=== PATIENT | male | born 1965 | race Caucasian/White ===

== ENCOUNTER 2016-10-10 04:59 | Emergency (ER) | payer BC ==
[~2016-10-10] VITALS: Ht 185.4 cm; Wt 76.0 kg
[~2016-10-10 04:59] MED LIST: ALBU1AER INH; BACT800T5 PO; GABA100C4 PO; LEVE250 PO; METH500T3 PO; NAPR500 PO
[2016-10-10 05:01] VITALS: BP 126/73; PULSE 92; RESP 18; TEMP 98; O2SAT 97
[2016-10-10] MEDS ORDERED: LEVE500 PO (05:19)
[2016-10-10] MEDS ORDERED: GABA600T PO (05:19)
[2016-10-10] MEDS ORDERED: CLINDAMYCIN INJ 900 MG in SODIUM CHLORIDE 0.9% INJ 100 ML IV ONE (06:15)
[2016-10-10] MEDS ORDERED: LIDOCAINE HCL 1% PF 30 ML VIAL INFIL ONE (06:15)
[2016-10-10 06:47] LABS: AUTOMATED NEUTROPHIL # 4.8 TH/MM3 (1.8-7.7); BASOPHIL # 0.1 TH/MM3 (0-0.2); BASOPHIL % 0.9 % (0.0-2.0); EOSINOPHIL # 0.2 TH/MM3 (0-0.4); EOSINOPHIL % 2.7 % (0.0-4.0); HEMATOCRIT 40.5 % (39.0-51.0); HEMO FLAGS DIFF FINAL; LYMPH % 25.3 % (9.0-44.0); LYMPHOCYTE # 2.1 TH/MM3 (1.0-4.8); MEAN CELL VOLUME 91.8 FL (80.0-100.0); MEAN CORPUSCULAR HGB CONC 33.8 % (32.0-36.0); MONO % 12.2 % (0.0-8.0); NEUT % 58.9 % (16.0-70.0); PLATELET COUNT 229 TH/MM3 (150-450); RED BLOOD COUNT 4.42 MIL/MM3 (4.50-5.90); RED CELL DISTRIBUTION WIDTH 15.9 % (11.6-17.2); WHITE BLOOD COUNT 8.2 TH/MM3 (4.0-11.0)
[2016-10-10 07:02] LABS: BICARBONATE 24.7 MEQ/L (21.0-32.0); POTASSIUM 4.1 MEQ/L (3.5-5.1)
--- NOTE | 2016-10-10 07:35 | PD ---
Physical Exam Time Seen by Provider: 07:34 Data Data Last Documented VS Vital Signs Date Time Temp Pulse Resp B/P Pulse Ox O2 Delivery O2 Flow Rate FiO2 10/10/16 05:01 98.0 92 18 126/73 97 Orders Basic Metabolic Panel (Bmp) (10/10/16 06:07) Complete Blood Count With Diff (10/10/16 06:07) Blood Culture (10/10/16 06:07) Wound Culture And Gram Stain (10/10/16 06:07) Iv Access Insert/Monitor (10/10/16 06:07) Clindamycin Inj (Cleocin Inj) (10/10/16 06:15) Lidocaine Pf 1% Inj (Xylocaine-Mpf 1% In (10/10/16 06:15) Labs Laboratory Tests Test 10/10/16 06:20 White Blood Count 8.2 TH/MM3 Red Blood Count 4.42 MIL/MM3 Hemoglobin 13.7 GM/DL Hematocrit 40.5 % Mean Corpuscular Volume 91.8 FL Mean Corpuscular Hemoglobin 31.0 PG Mean Corpuscular Hemoglobin 33.8 % Concent Red Cell Distribution Width 15.9 % Platelet Count 229 TH/MM3 Mean Platelet Volume 7.3 FL Neutrophils (%) (Auto) 58.9 % Lymphocytes (%) (Auto) 25.3 % Monocytes (%) (Auto) 12.2 % Eosinophils (%) (Auto) 2.7 % Basophils (%) (Auto) 0.9 % Neutrophils # (Auto) 4.8 TH/MM3 Lymphocytes # (Auto) 2.1 TH/MM3 Monocytes # (Auto) 1.0 TH/MM3 Eosinophils # (Auto) 0.2 TH/MM3 Basophils # (Auto) 0.1 TH/MM3 CBC Comment DIFF FINAL Differential Comment Sodium Level 138 MEQ/L Potassium Level 4.1 MEQ/L Chloride Level 104 MEQ/L Carbon Dioxide Level 24.7 MEQ/L Anion Gap 9 MEQ/L Blood Urea Nitrogen 12 MG/DL Creatinine 0.83 MG/DL Estimat Glomerular Filtration 97 ML/MIN Rate Random Glucose 80 MG/DL Calcium Level 8.3 MG/DL [facility] Medical Record Reviewed: Yes Supervised Visit with SASCHA: No Procedures Procedure Narrative After the risks and benefits were discussed the following procedure was performed: INCISION AND DRAINAGE OF ABSCESS: The area was prepped and was sterilely draped. A subcutaneous wheal of 1% Xylocaine with epi with a total number 4 mL was used to anesthetize the area. The area was properly anesthetized. A number 11scalpel was used to open the area across the area of the abscess. Cultures were obtained. The abscess was drained an irrigated with normal saline. Quarter inch iodoform packing was placed in the wound. Sterile dressing applied. Patient advised to have packing removed in two days. Condition: Stable Aspen Aguilera Oct 10, 2016 07:35
[2016-10-10] MEDS ORDERED: CLIN1CAP5 PO (07:36)
[2016-10-10] MEDS ORDERED: BACT800T5 PO (07:36)
--- NOTE | 2016-10-10 07:37 | PD ---
HPI Chief Complaint: Skin Problem Time Seen by Provider: 06:06 Travel History International Travel<30 days: No Contact w/Intl Traveler<30days: No Traveled to known affect area: No History of Present Illness HPI 51-year-old male presents to the emergency department for complaint of skin infection and abscess to the right forearm. Patient has had abscess to the right forearm in the past due to IV Dilaudid abuse. Patient states he has not used IV Dilaudid and 2 weeks or greater. Patient states that he believes he was stung or bitten by an insect or some other organism because he denies using any IV drugs in that form for some time now. Agent thinks he's had some subjective fever and chills but has not checked his temperature. Patient denies any ascending erythema and denies any axillary tenderness or lymphadenopathy. Patient's had no nausea or vomiting. Patient is not diabetic. Patient rates his pain as moderate to severe. Patient is right- handed. Patient reports his tetanus status is current. Patient states she's been taking his medications as prescribed for seizure disorder and chronic pain syndrome. [facility] Past Medical History Narrative Medical Chronic back pain, seizure disorder, IV drug use; nursing notes reviewed Diminished Hearing: No Headaches: No Musculoskeletal: Yes (CHRONIC LOW BACK PAIN) Neurologic: No Immunizations Current: Yes Migraines: No Seizures: Yes (Due to drug use) Past Surgical History Surgical History: No Previous Surgery Other Surgery: No Social History Alcohol Use: No Tobacco Use: Yes (2 packs per day) Substance Use: Yes (states 2 weeks ago IV drug use) Allergies-Medications (Allergen,Severity, Reaction): Coded Allergies: No Known Allergies (Unverified , 10/10/16) Reported Meds & Prescriptions Reported Meds & Active Scripts Active Reported Gabapentin 600 Mg Tab 600 Mg PO TID Keppra (Levetiracetam) 500 Mg Tab 500 Mg PO BID Review of Systems General / Constitutional: Positive: Fever (subjective) Eyes: No: Visual changes HENT: No: Congestion Cardiovascular: No: Chest Pain or Discomfort Respiratory: No: Shortness of Breath Gastrointestinal: No: Nausea, Vomiting, Abdominal Pain Genitourinary: No: Decreased Urinary Output, Flank Pain Musculoskeletal: Positive: Pain Skin: Positive Rash (right forearm), Positive Lumps ( right forearm right forearm) Neurologic: No: Weakness Psychiatric: Positive: Substance Abuse, No: Anxiety Hematologic/Lymphatic: No: Lymph Node Enlargement Physical Exam Narrative GENERAL: Well-developed well-nourished male in no acute distress no respiratory distress SKIN: Warm and dry. Attention right forearm area of induration 5 cm x 7 cm with central area of fluctuance that's already partially been unroofed no crepitus or eschar is noted no ascending erythema no axillary lymphadenopathy distally extremity is neurovascular tendon intact without any edema or erythema. HEAD: Normocephalic. EYES: No scleral icterus. No injection or drainage. NECK: Supple, trachea midline. No JVD or lymphadenopathy. CARDIOVASCULAR: Regular rate and rhythm without murmurs, gallops, or rubs. RESPIRATORY: Breath sounds equal bilaterally. No accessory muscle use. GASTROINTESTINAL: Abdomen soft, non-tender, nondistended. MUSCULOSKELETAL: No cyanosis, or edema. BACK: Nontender without obvious deformity. No CVA tenderness. Data Data Last Documented VS Vital Signs Date Time Temp Pulse Resp B/P Pulse Ox O2 Delivery O2 Flow Rate FiO2 10/10/16 05:01 98.0 92 18 126/73 97 Orders Basic Metabolic Panel (Bmp) (10/10/16 06:07) Complete Blood Count With Diff (10/10/16 06:07) Blood Culture (10/10/16 06:07) Wound Culture And Gram Stain (10/10/16 06:07) Iv Access Insert/Monitor (10/10/16 06:07) Clindamycin Inj (Cleocin Inj) (10/10/16 06:15) Lidocaine Pf 1% Inj (Xylocaine-Mpf 1% In (10/10/16 06:15) Labs Laboratory Tests Test 10/10/16 06:20 White Blood Count 8.2 TH/MM3 Red Blood Count 4.42 MIL/MM3 Hemoglobin 13.7 GM/DL Hematocrit 40.5 % Mean Corpuscular Volume 91.8 FL Mean Corpuscular Hemoglobin 31.0 PG Mean Corpuscular Hemoglobin 33.8 % Concent Red Cell Distribution Width 15.9 % Platelet Count 229 TH/MM3 Mean Platelet Volume 7.3 FL Neutrophils (%) (Auto) 58.9 % Lymphocytes (%) (Auto) 25.3 % Monocytes (%) (Auto) 12.2 % Eosinophils (%) (Auto) 2.7 % Basophils (%) (Auto) 0.9 % Neutrophils # (Auto) 4.8 TH/MM3 Lymphocytes # (Auto) 2.1 TH/MM3 Monocytes # (Auto) 1.0 TH/MM3 Eosinophils # (Auto) 0.2 TH/MM3 Basophils # (Auto) 0.1 TH/MM3 CBC Comment DIFF FINAL Differential Comment Sodium Level 138 MEQ/L Potassium Level 4.1 MEQ/L Chloride Level 104 MEQ/L Carbon Dioxide Level 24.7 MEQ/L Anion Gap 9 MEQ/L Blood Urea Nitrogen 12 MG/DL Creatinine 0.83 MG/DL Estimat Glomerular Filtration 97 ML/MIN Rate Random Glucose 80 MG/DL Calcium Level 8.3 MG/DL [facility] Medical Decision Making Medical Screen Exam Complete: Yes Emergency Medical Condition: Yes Medical Record Reviewed: Yes Differential Diagnosis Cellulitis abscess puncture wound; no findings for necrotizing fasciitis or gas gangrene Narrative Course IV access obtained specimens collected; patient administered clindamycin 900 mg IV and Toradol 30 mg IV After informed verbal consent incision and drainage was performed and residual unroofed skin removed. Please refer to PAs dictation Patient at this time is stable for discharge and encouraged to follow up closely in the next 24-48 hours for packing removal and to return before should he develop fever ascending erythema or any lymph nodes or axillary pain or tenderness. Diagnosis Primary Impression: Cellulitis of forearm, right Additional Impression: Abscess of right forearm Referrals: Primary Care Physician Patient Instructions: General Instructions Additional Instructions: Keep site clean and dry Return to the emergency department in 1-2 days for packing removal Return to the emergency department before 1-2 days if increased redness swelling ascending redness or pain to the axilla/armpit area or any concerns Monitor temperature every 4 hours with thermometer administer as needed acetaminophen/Tylenol for fever 100.4F or greater or for minor pain Take ibuprofen/Advil/Motrin every 6-8 hours as needed for fever 100.4 days Fahrenheit or greater or for pain associated inflammation Complete course of antibiotic as prescribed Med/Other Pt SpecificInfo: Prescription(s) given Scripts Sulfamethoxazole-Trimethoprim (Bactrim DS)800-160 Mg Tab1 Tab PO BID #14 TAB Ref 0 Prov:Sandra Argueta MD 10/10/16 Clindamycin 150 Mg [id number] Mg PO Q6H 7 Days Ref 0 Prov:Sandra Argueta MD 10/10/16 Disposition: 01 DISCHARGE HOME Condition: Stable Sandra Argueta MD Oct 10, 2016 07:37
== END 2016-10-10 08:08 | disposition home or self-care (01) ==
LOC: NEPC 04:59
DX: L02.413 Cutaneous abscess of right upper limb (principal); L03.113 Cellulitis of right upper limb; F17.200 Nicotine dependence, unspecified, uncomplicated; Z87.39 Personal history of other diseases of the musculoskeletal system and connective tissue; Z86.69 Personal history of other diseases of the nervous system and sense organs
CPT/HCPCS: 10061; 80048; 85025; 86403; 87040; 87070; 96365

== ENCOUNTER 2017-10-03 09:34 | Emergency (ER) | payer BC, OTHER ==
[~2017-10-03] VITALS: Ht 185.4 cm; Wt 79.5 kg
[~2017-10-03 09:34] MED LIST changes: -ALBU1AER INH; +CLIN150C14 PO; -GABA100C4 PO; +GABA600T PO; -LEVE250 PO; +LEVE500 PO; -METH500T3 PO; -NAPR500 PO
[2017-10-03 09:37] VITALS: BP 144/80; PULSE 83; RESP 16; TEMP 97.8; O2SAT 98
[2017-10-03] MEDS ORDERED: BACT800T5 PO (09:50)
[2017-10-03] MEDS ORDERED: IBUP-232 PO (09:57)
--- NOTE | 2017-10-03 09:57 | PD ---
HPI Chief Complaint: Skin Problem Time Seen by Provider: 09:44 Travel History International Travel<30 days: No Contact w/Intl Traveler<30days: No Traveled to known affect area: No History of Present Illness HPI 52-year-old male presents emergency department with tender erythematous indurated area to the left forearm after shooting up Dilaudid 2 days ago. Patient has had similar reactions in the past. He denies fever, chills, or drainage to the area. There is no pointing. Pain is about a 4 out of 10. He has no known drug allergies. PFSH Past Medical History Hx Anticoagulant Therapy: No Cardiovascular Problems: No Chemotherapy: No Cerebrovascular Accident: No Diabetes: No Diminished Hearing: No Headaches: No Musculoskeletal: Yes (CHRONIC LOW BACK PAIN) Neurologic: No Respiratory: No Immunizations Current: Yes Migraines: No Seizures: Yes (Due to drug use) Past Surgical History Other Surgery: No Social History Alcohol Use: No Tobacco Use: Yes (2 packs per day) Substance Use: Yes (states 2 weeks ago IV drug use) Allergies-Medications (Allergen,Severity, Reaction): Coded Allergies: No Known Allergies (Unverified Adverse Reaction, Unknown, 10/03/17) Reported Meds & Prescriptions Reported Meds & Active Scripts Active Bactrim DS (Sulfamethoxazole-Trimethoprim) 800-160 Mg Tab 1 Tab PO BID Bactrim DS (Sulfamethoxazole-Trimethoprim) 800-160 Mg Tab 1 Tab PO BID Clindamycin (Clindamycin HCl) 150 Mg Cap 300 Mg PO Q6H 7 Days Reported Gabapentin 600 Mg Tab 600 Mg PO TID Keppra (Levetiracetam) 500 Mg Tab 500 Mg PO BID Review of Systems Except as stated in HPI: all other systems reviewed are Neg General / Constitutional: No: Fever Eyes: No: Visual changes HENT: No: Headaches Cardiovascular: No: Chest Pain or Discomfort Respiratory: No: Shortness of Breath Gastrointestinal: No: Abdominal Pain Genitourinary: No: Dysuria Musculoskeletal: No: Pain Skin: Positive Lesions, No Rash Neurologic: No: Weakness Psychiatric: No: Depression Endocrine: No: Polydipsia Hematologic/Lymphatic: No: Easy Bruising Physical Exam Narrative GENERAL: Patient appears in no acute distress SKIN: Warm and dry. Normal color. Normal turgor. Patient has multiple puncture wounds from IV drug abuse. Patient has a quarter sized erythematous indurated area to the proximal dorsal left forearm without obvious abscess formation. There is no pointing. There is no lymphangitis. HEAD: Atraumatic. Normocephalic. EYES: Pupils equal and round. No scleral icterus. No injection or drainage. ENT: No nasal bleeding or discharge. Mucous membranes pink and moist. Pharynx is clear. Airway is patent. NECK: Trachea midline. Supple. CARDIOVASCULAR: Regular rate and rhythm. RESPIRATORY: No accessory muscle use. Clear to auscultation. Breath sounds equal bilaterally. MUSCULOSKELETAL: Extremities without clubbing, cyanosis, or edema. No obvious deformities. Range of motion and insulation professional strength is normal bilaterally. Neurovascular exam is normal NEUROLOGICAL: Awake and alert. No obvious cranial nerve deficits. Motor grossly within normal limits. Five out of 5 muscle strength in the arms and legs. Normal speech. PSYCHIATRIC: Appropriate mood and affect; insight and judgment normal. Data Data Last Documented VS Vital Signs Date Time Temp Pulse Resp B/P (MAP) Pulse Ox O2 Delivery O2 Flow Rate FiO2 10/03/17 09:37 97.8 83 16 144/80 (101) 98 MDM Medical Decision Making Medical Screen Exam Complete: Yes Emergency Medical Condition: Yes Differential Diagnosis IV drug abuse. Cellulitis. Early abscess Narrative Course I do not appreciate a drainable abscess at this time. Patient will be treated with Bactrim DS twice daily 7 days. Patient also given ibuprofen 600 mg 3 times daily as needed pain #30 Patient should use warm packs to this area and follow-up if symptoms do not improve or worsen as discussed. Diagnosis Primary Impression: Cellulitis of left forearm Referrals: [facility] Patient Instructions: General Instructions Additional Instructions: I do not appreciate a drainable abscess at this time. Patient will be treated with Bactrim DS twice daily 7 days. Patient also given ibuprofen 600 mg 3 times daily as needed pain #30 Patient should use warm packs to this area and follow-up if symptoms do not improve or worsen as discussed. Med/Other Pt SpecificInfo: Prescription(s) given Scripts Sulfamethoxazole-Trimethoprim (Bactrim DS) 800-160 Mg Tab 1 TAB PO BID for Infection, #14 TAB 0 Refills Prov: Mark Jo MD 10/03/17 Disposition: DISCHARGE HOME Condition: Stable Gerald Marina Oct 03, 2017 09:57
== END 2017-10-03 10:19 | disposition home or self-care (01) ==
LOC: NEPK 09:34
DX: L03.114 Cellulitis of left upper limb (principal); F11.90 Opioid use, unspecified, uncomplicated
CPT/HCPCS: 99283